=== PATIENT | female | born 1970 | race Caucasian/White ===

== ENCOUNTER 2018-08-25 17:01 | Outpatient (RCR) | payer SELFPAY ==
[~2018-08-25 17:01] MED LIST: ADVIL MIGRAINE PO; ALP5 PO; ASC500 PO; CEFU250 PO; CEP500 PO; CET10 PO; CIP500 PO; DOXY150T6 PO; FAM20 PO; FES4PT PO; HYDR-653 PO; IBU200 PO; IBU800 PO; INDO-1 PO; KET10 PO; LOR5/325 PO; METR-1 PO; NO ROUTINE MEDS; PRO25 PO; PROM25S PR; TUM500 PO
== END 2018-08-26 08:45 | disposition home or self-care (01) ==
LOC: SPU 17:01
PROVIDERS: ATTEND Internal Medicine
DX: Z02.9 Encounter for administrative examinations, unspecified (principal)